=== PATIENT | female | born 1985 | race Caucasian/White ===

== ENCOUNTER → 2017-10-20 | Outpatient (CLI) | payer OTHER | END | disposition home or self-care (01) | LOC: US 05:58 | DX: R10.13 Epigastric pain (principal) | CPT/HCPCS: 76700 ==

== ENCOUNTER → 2018-03-22 | Outpatient (CLI) | payer OTHER ==
--- NOTE | 2018-03-22 12:44 | RAD ---
EXAM: Chest, 2 views. HISTORY: Tuberculin skin test. COMPARISON: None. FINDINGS: Frontal and lateral views of the chest are obtained. There is no infiltrate, pleural effusion or pneumothorax. The heart is normal in size. IMPRESSION: No acute pulmonary finding. Electronically signed by: Beth Rouse MD (03/22/2018 12:41 PM) [place] [id number]
== END | disposition home or self-care (01) ==
LOC: RAD 12:14
PROVIDERS: ATTEND Family Medicine
DX: Z11.1 Encounter for screening for respiratory tuberculosis (principal)
CPT/HCPCS: 71046

== ENCOUNTER 2018-05-12 22:21 | Emergency (ER) | payer OTHER ==
[~2018-05-12] VITALS: Ht 157.5 cm; Wt 63.0 kg
[2018-05-12 22:59] VITALS: BP 136/75
[2018-05-13] MEDS ORDERED: DEXAMETHASONE SOD PHOS 20 MG/5 ML VIAL. PO ONE
[2018-05-13] MEDS ORDERED: diphenhydrAMINE HCL 25 MG CAPSULE PO ONE
--- NOTE | 2018-05-13 00:31 | PHYS DOC ---
Past Medical History Past Medical History: Asthma Past Surgical History: No Surgical History Drug Use: None Adult General Chief Complaint Chief Complaint: FACE PROBLEM HPI HPI Patient is a 32 year old female who presents to the emergency room with complaints of swelling to her right upper lip that was noticed today. She denies any new medications, foods, perfumes, detergents, or environmental exposures. She states that earlier today she noticed a numb tingly sensation to the right of her lip that went away within a few minutes and then when she arrived at work she states that her coworkers told her that her lip was swollen. She denies any tongue swelling, sore throat, difficulty breathing, shortness of breath, or nausea. She also reports concern about swelling that happens in both of her feet almost daily and redness.. Review of Systems Review of Systems Constitutional: Denies fever or chills [] Eyes: Denies change in visual acuity, redness, or eye pain [] HENT: Denies nasal congestion or sore throat, reports swelling to right upper lip, denies itching and swelling of tongue [] Respiratory: Denies cough or shortness of breath [] Musculoskeletal: Denies back pain or joint pain [] Integument: Denies rash or skin lesions [] Neurologic: Denies headache, focal weakness or sensory changes [] All other systems were reviewed and found to be within normal limits, except as documented in this note. Current Medications Current Medications Current Medications Medications (Trade) Dose Ordered Sig/[facility] Start Time Stop Time Status Last Admin Dose Admin Dexamethasone Sodium Phosphate (Decadron) 10 mg 1X ONCE 05/13/18 00:00 05/13/18 00:01 DC 05/12/18 23:58 10 MG Diphenhydramine HCl (Benadryl) 25 mg 1X ONCE 05/13/18 00:00 05/13/18 00:01 DC 05/12/18 23:58 25 MG Allergies Allergies Allergies Coded Allergies Type Severity Reaction Last Updated Verified No Known Drug Allergies 05/12/18 No Physical Exam Physical Exam Constitutional: Well developed, well nourished, no acute distress, non-toxic appearance. [] HENT: Normocephalic, atraumatic, bilateral external ears normal, oropharynx moist, no oral exudates, nose normal. [] Eyes: PERRLA, EOMI, conjunctiva normal, no discharge. [] Neck: Normal range of motion, no tenderness, supple, no stridor. [] Cardiovascular:Heart rate regular rhythm, no murmur [] Lungs & Thorax: Bilateral breath sounds clear to auscultation [] Abdomen: Bowel sounds normal, soft, no tenderness, no masses, no pulsatile masses. [] Skin: Warm, dry, no erythema, no rash. [] Back: No tenderness, no CVA tenderness. [] Extremities: No tenderness, no cyanosis, no clubbing, ROM intact, no edema. [] Neurologic: Alert and oriented X 3, normal motor function, normal sensory function, no focal deficits noted. [] Psychologic: Affect normal, judgement normal, mood normal. [] Current Patient Data Vital Signs Vital Signs Date Time Temp Pulse Resp B/P (MAP) Pulse Ox O2 Delivery O2 Flow Rate FiO2 05/12/18 22:59 98.3 97 20 136/75 (95) 97 Room Air 98.3 EKG EKG [] Radiology/Procedures Radiology/Procedures [] Course & Med Decision Making Course & Med Decision Making Pertinent Labs and Imaging studies reviewed. (See chart for details) DX: swollen upper lip, allergic reaction pt was given 10 mg of decadron po and 25 mg of benadryl. Reduced swelling was noted after medications. Pt was instructed to follow up with her PCP about the concerns of her feet, to continue taking benadryl as needed for lip swelling and to return to the ER if sx worsen. Patient verbalized an understanding of home care, medications, follow-up, and return to ED instructions and was in agreement with the plan of care.Patient verbalized an understanding of home care , medications, follow-up, and return to ED instructions and was in agreement with the plan of care. [] Dragon Disclaimer Dragon Disclaimer This electronic medical record was generated, in whole or in part, using a voice recognition dictation system. Departure Departure Impression: Primary Impression: Swollen upper lip Additional Impression: Allergic reaction Disposition: 01 HOME, SELF-CARE Condition: IMPROVED Referrals: LAUREN FRENCH MD (PCP) Patient Instructions: Allergies, Generic Additional Instructions: Follow up with your primary care doctor for further allergy testing and evaluation of your chronic foot irritation and pain. Benadryl 25-50 mg every 6 hours as needed for lip swelling. Return to the ER if your symptoms worsen. Problem Qualifiers Additional Impression: Allergic reaction Encounter type: initial encounter Qualified Codes: T78.40XA - Allergy, unspecified, initial encounter GARRET GALEANA [employer] May 13, 2018 00:31
== END 2018-05-13 00:35 | disposition home or self-care (01) ==
LOC: ER 22:21
DX: K13.0 Diseases of lips (principal); T78.40XA Allergy, unspecified, initial encounter; J45.909 Unspecified asthma, uncomplicated
CPT/HCPCS: 99283; J1100; Q0163